=== PATIENT | male | born 1985 | race Caucasian/White ===

== ENCOUNTER 2016-07-24 20:35 | Emergency (ER) | payer MEDICAID, OTHER ==
[2016-07-24 21:04] LABS: ABSOLUTE BASOPHILS # (AUTO) 0.1 10^3/uL (0.0-0.2); ABSOLUTE EOSINOPHILS # (AUTO) 0.1 10^3/uL (0.0-0.6); ABSOLUTE LYMPHOCYTES (AUTO) 1.2 10^3/uL (0.5-4.7); ABSOLUTE MONOCYTES (AUTO) 0.5 10^3/uL (0.1-1.4); ABSOLUTE NEUT (AUTO) 5.6 10^3/uL (1.7-8.2); BASOPHILS % (AUTO) 0.8 % (0-2); EOSINOPHILS % (AUTO) 0.8 % (0-6); HEMATOCRIT 50.5 % (37.9-51.0); HEMOGLOBIN 16.9 g/dL (13.5-17.0); HGB HCT DIFFERENCE 0.2; LYMPHOCYTES % (AUTO) 15.9 % (13-45); MEAN CORPUSCULAR HEMOGLOBIN 32.2 pg (27.0-33.4); MEAN CORPUSCULAR HGB CONC 33.6 g/dL (32.0-36.0); MEAN CORPUSCULAR VOLUME 96 fl (80-97); MONOCYTES % (AUTO) 7.2 % (3-13); RED BLOOD COUNT 5.27 10^6/uL (4.35-5.55); RED CELL DISTRIBUTION WIDTH 13.2 % (11.5-14.0); SEGMENTED NEUTROPHILS % (AUTO) 75.3 % (42-78); WHITE BLOOD COUNT 7.4 10^3/uL (4.0-10.5)
[2016-07-24 21:28] LABS: ALANINE AMINOTRANSFERASE 39 U/L (21-72); ALBUMIN 4.2 g/dL (3.5-5.0); ALKALINE PHOSPHATASE 67 U/L (38-126); ANION GAP 12 (5-19); ASPARTATE AMINO TRANSFERASE 25 U/L (17-59); BLOOD UREA NITROGEN 17 mg/dL (7-20); CALCIUM 9.7 mg/dL (8.4-10.2); CARBON DIOXIDE 30 mmol/L (22-30); CHLORIDE 101 mmol/L (98-107); CREATININE RESULT 0.99 mg/dL (0.52-1.25); GLUCOSE 98 mg/dL (75-110); POTASSIUM 4.6 mmol/L (3.6-5.0); SODIUM 143.2 mmol/L (137-145); TOTAL PROTEIN 6.9 g/dL (6.3-8.2)
[2016-07-24 21:29] LABS: ALCOHOL < 10 mg/dL (NONE DETECTED)
--- NOTE | 2016-07-24 21:45 | ER Document Report ---
ED General - General Chief Complaint: Probable Seizure Stated Complaint: POSSIBLE SEIZURE Mode of Arrival: Medic Information source: Patient Notes: 30-year-old male history of pseudoseizures seizures cerebral palsy presents with seizure-like episode. EMS does note that the patient was responding during his seizure activity to them. Patient notes he has not taken his medication tonight TRAVEL OUTSIDE OF THE [place] IN LAST 30 DAYS: No - HPI Onset: Just prior to arrival Onset/Duration: Sudden Quality of pain: No pain Severity: Mild Pain Level: Denies Associated symptoms: Other Exacerbated by: Denies Relieved by: Denies Similar symptoms previously: Yes Recently seen / treated by doctor: Yes - Related Data Allergies/Adverse Reactions: azithromycin [From Zithromax Z-Jhony] Allergy (Severe, Verified 06/22/16 00:20) Shortness of Breath divalproex sodium [From Depakote] Allergy (Severe, Verified 06/22/16 00:20) Seizures doxycycline [Doxycycline] Allergy (Severe, Verified 06/22/16 00:20) Seizures erythromycin base [Erythromycin Base] Allergy (Severe, Verified 06/22/16 00:20) Shortness of Breath Influenza Virus Vaccines [Influenza Virus Vaccine] Allergy (Severe, Verified 01/29 00:20) Seizures levetiracetam [Levetiracetam] Allergy (Severe, Verified 06/22/16 00:20) Seizures lorazepam [From Ativan] Allergy (Severe, Verified 06/22/16 01:40) Shortness of Breath phenytoin sodium [From Dilantin] Allergy (Severe, Verified 06/22/16 00:20) Hallucinations phenytoin sodium extended [From Dilantin] Allergy (Severe, Verified 06/22/16 00: 20) Hallucinations latex [Latex] Adverse Reaction (Intermediate, Verified 06/22/16 00:20) Hives Past Medical History - Social History Smoking Status: Never Smoker Cigarette use (# per day): No Chew tobacco use (# tins/day): No Smoking Education Provided: No Family History: Reviewed & Not Pertinent Pulmonary Medical History: Reports: Hx Asthma Neurological Medical History: Reports: Hx Seizures Musculoskeltal Medical History: Reports Hx Muscle Spasm Psychiatric Medical History: Reports: Hx Anxiety, Hx Bipolar Disorder, Hx Depression Traumatic Medical History: Reports: Hx Fractures Past Surgical History: Reports: Hx Orthopedic Surgery - L foot - Immunizations Hx Diphtheria, Pertussis, Tetanus Vaccination: Yes Review of Systems - Review of Systems Notes: REVIEW OF SYSTEMS: CONSTITUTIONAL : Denies fever, chills, or sweats. Denies recent illness. EENT: Denies eye, ear, throat, or mouth pain or symptoms. Denies nasal or sinus congestion or discharge. Denies throat, tongue, or mouth swelling or difficulty swallowing. CARDIOVASCULAR: Denies chest pain. Denies palpitations or racing or irregular heart beat. Denies ankle edema. RESPIRATORY: Denies cough, cold, or chest congestion. Denies shortness of breath, difficulty breathing, or wheezing. GASTROINTESTINAL: Denies abdominal pain or distention. Denies nausea, vomiting , or diarrhea. Denies blood in vomitus, stools, or per rectum. Denies black, tarry stools. Denies constipation. GENITOURINARY: Denies difficulty urinating, painful urination, burning, frequency, blood in urine, or discharge. MUSCULOSKELETAL: Denies back or neck pain or stiffness. Denies joint pain or swelling. SKIN: Denies rash, lesions or sores. HEMATOLOGIC : Denies easy bruising or bleeding. LYMPHATIC: Denies swollen, enlarged glands. NEUROLOGICAL: Admits to seizure PSYCHIATRIC: Denies anxiety or stress. Denies depression, suicidal ideation, or homicidal ideation. ALL OTHER SYSTEMS REVIEWED AND NEGATIVE. Dictation was performed using [employer] voice recognition software PHYSICAL EXAMINATION: GENERAL: Well-appearing, well-nourished and in no acute distress. HEAD: Atraumatic, normocephalic. EYES: Pupils equal round and reactive to light, extraocular movements intact, sclera anicteric, conjunctiva are normal. ENT: Nares patent, oropharynx clear without exudates. Moist mucous membranes. NECK: Normal range of motion, supple without lymphadenopathy LUNGS: Breath sounds clear to auscultation bilaterally and equal. No wheezes rales or rhonchi. HEART: Regular rate and rhythm without murmurs ABDOMEN: Soft, nontender, nondistended abdomen. No guarding, no rebound. No masses appreciated. Musculoskeletal: Normal range of motion, no pitting or edema. No cyanosis. NEUROLOGICAL: Cranial nerves grossly intact. Normal speech, normal gait. Normal sensory, motor exams patient has left hand clenched , responsive to sternal rub and when I grab his hand he pulls away from me PSYCH: Normal mood, normal affect. SKIN: Warm, Dry, normal turgor, no rashes or lesions noted. Physical Exam - Vital signs Vitals: Pulse Resp BP Pulse Ox 96 20 130/53 H 98 07/24/16 20:36 07/24/16 20:36 07/24/16 20:36 07/24/16 20:36 Course - Re-evaluation Re-evalutation: 07/24/16 23:11 I have extremely low suspicion of this being an actual seizure, patient did interact with me during his seizure-like episodes. Lab work note no significant abnormality patient stable either way After performing a Medical Screening Examination, I estimate there is LOW risk for ACUTE GLAUCOMA, TEMPORAL ARTERITIS, MENINGITIS, INCRANIAL HEMORRHAGE, or ISCHEMIC STROKE thus I consider the discharge disposition reasonable. The patient and I have discussed the diagnosis and risks, and we agree with discharging home with close follow-up with the understanding that symptoms and presentations can change. We also discussed returning to the Emergency Department immediately if new or worsening symptoms occur. We have discussed the symptoms which are most concerning (e.g., changing or worsening symptoms, new numbness or weakness, vomiting, fever) that necessitate immediate return. - Vital Signs Vital signs: Temp Pulse Resp BP Pulse Ox 98.4 F 96 17 138/77 H 98 07/24/16 22:40 07/24/16 20:36 07/24/16 22:40 07/24/16 22:40 07/24/16 22:40 - Laboratory Result Diagrams: 07/24/16 20:48 07/24/16 20:48 Laboratory results interpreted by me: 07/24/16 21:38 Urine Ketones TRACE H Discharge - Discharge Clinical Impression: Seizure-like activity Condition: Stable Disposition: HOME, SELF-CARE Instructions: Seizure, Known Epileptic ([facility]) Referrals: ROC GOMEZ MD [Primary Care Provider] - Follow up tomorrow
[2016-07-24 22:07] LABS: APPEARANCE,URINE CLEAR; BILIRUBIN,URINE NEGATIVE (NEGATIVE); GLUCOSE, URINE NEGATIVE (NEGATIVE); KETONES,URINE TRACE mg/dL (NEGATIVE); LEUKOCYTE ESTERASE,URINE NEGATIVE (NEGATIVE); NITRITE,URINE NEGATIVE (NEGATIVE); PROTEIN,URINE NEGATIVE (NEGATIVE); URINE SPECIFIC GRAVITY 1.029; UROBILINOGEN,URINE NEGATIVE mg/dL (<2.0)
[2016-07-24 22:48] VITALS: BP 138/77
[2016-07-26 16:13] LABS: URINE BARBITURATES SCREEN NEGATIVE; URINE METHADONE SCREEN NEGATIVE; URINE PHENCYCLIDINE SCREEN NEGATIVE
== END 2016-07-24 22:57 | disposition home or self-care (01) ==
LOC: ER 20:35
DX: R56.9 Unspecified convulsions (principal); G80.9 Cerebral palsy, unspecified
CPT/HCPCS: 36415; 80053; 80307; 81001; 82962; 83735; 85025; 99284

== ENCOUNTER 2016-07-26 09:24 | Emergency (ER) | payer MEDICAID ==
[2016-07-26] MEDS ORDERED: DIAZEPAM INJ 10 MG/2 ML DISP.SYRIN ONE (10:02)
[2016-07-26] MEDS ORDERED: DIAZEPAM INJ 10 MG/2 ML DISP.SYRIN IV ONE ×2 (10:07→10:09)
[2016-07-26 10:24] LABS: APPEARANCE,URINE SLIGHTLY-CLOUDY; BILIRUBIN,URINE MODERATE (NEGATIVE); GLUCOSE, URINE NEGATIVE (NEGATIVE); KETONES,URINE 20 mg/dL (NEGATIVE); LEUKOCYTE ESTERASE,URINE NEGATIVE (NEGATIVE); NITRITE,URINE NEGATIVE (NEGATIVE); PROTEIN,URINE NEGATIVE (NEGATIVE); URINE SPECIFIC GRAVITY 1.031; UROBILINOGEN,URINE NEGATIVE mg/dL (<2.0)
--- NOTE | 2016-07-26 10:28 | ER Document Report ---
[id number] SEIZURE Notes: The patient is a 30-year-old male, past medical history seizure disorder, pseudoseizures, cerebral palsy, presents after a 10 minute seizure at home that resolved without any intervention. While in the emergency room, the patient had an additional generalized tonic-clonic seizure that lasted about 5 minutes. His heart rate increased to 160 and he was not responding to painful stimulation. After the seizure, patient said that he took his home Lamictal and Keppra earlier today. His girlfriend said that some of his medications have been adjusted recently. Denies head injury, numbness, tingling, blurry vision, fevers, neck stiffness, chest pain or shortness of breath. - Related Data Allergies/Adverse Reactions: azithromycin [From Zithromax Z-Jhony] Allergy (Severe, Verified 07/26/16 10:11) Shortness of Breath divalproex sodium [From Depakote] Allergy (Severe, Verified 07/26/16 10:11) Seizures doxycycline [Doxycycline] Allergy (Severe, Verified 07/26/16 10:11) Seizures erythromycin base [Erythromycin Base] Allergy (Severe, Verified 07/26/16 10:11) Shortness of Breath Influenza Virus Vaccines [Influenza Virus Vaccine] Allergy (Severe, Verified 05/02 10:11) Seizures levetiracetam [Levetiracetam] Allergy (Severe, Verified 07/26/16 10:11) Seizures lorazepam [From Ativan] Allergy (Severe, Verified 07/26/16 10:11) Shortness of Breath phenytoin sodium [From Dilantin] Allergy (Severe, Verified 07/26/16 10:11) Hallucinations phenytoin sodium extended [From Dilantin] Allergy (Severe, Verified 07/26/16 10: 11) Hallucinations latex [Latex] Adverse Reaction (Intermediate, Verified 07/26/16 10:11) Hives Past Medical History - General Information source: Patient, Friend - Social History Smoking Status: Unknown if Ever Smoked Family History: Reviewed & Not Pertinent Pulmonary Medical History: Reports: Hx Asthma Neurological Medical History: Reports: Hx Seizures Musculoskeltal Medical History: Reports Hx Muscle Spasm Psychiatric Medical History: Reports: Hx Anxiety, Hx Bipolar Disorder, Hx Depression Traumatic Medical History: Reports: Hx Fractures Past Surgical History: Reports: Hx Orthopedic Surgery - L foot - Immunizations Hx Diphtheria, Pertussis, Tetanus Vaccination: Yes Review of Systems - Review of Systems Notes: REVIEW OF SYSTEMS: CONSTITUTIONAL: -fevers, -chills EENT: -eye pain, -difficulty swallowing, -nasal congestion CARDIOVASCULAR:-chest pain, -syncope. RESPIRATORY: -cough, -SOB GASTROINTESTINAL: -abdominal pain, - nausea, -vomiting, -diarrhea GENITOURINARY: -dysuria, -hematuria MUSCULOSKELETAL: -back pain, -neck pain SKIN: -rash or skin lesions. HEMATOLOGIC: -easy bruising or bleeding. LYMPHATIC: -swollen, enlarged glands. NEUROLOGICAL: +seizure PSYCHIATRIC: -anxiety, -depression. ALL OTHER SYSTEMS REVIEWED AND NEGATIVE. Physical Exam - Vital signs Vitals: Temp Pulse Resp BP Pulse Ox 98.2 F 102 H 21 H 134/74 H 100 07/26/16 09:24 07/26/16 09:24 07/26/16 09:24 07/26/16 09:24 07/26/16 09:24 - Notes Notes: PHYSICAL EXAMINATION: GENERAL: Well-appearing, well-nourished and in no acute distress. HEAD: Atraumatic, normocephalic. EYES: Pupils equal round and reactive to light, extraocular movements intact, sclera anicteric, conjunctiva are normal. ENT: nares patent, oropharynx clear without exudates. Moist mucous membranes. NECK: Normal range of motion, supple without lymphadenopathy LUNGS: Breath sounds clear to auscultation bilaterally and equal. No wheezes rales or rhonchi. HEART: Regular rate and rhythm without murmurs ABDOMEN: Soft, nontender, normoactive bowel sounds. No guarding, no rebound. No masses appreciated. EXTREMITIES: Normal range of motion, no pitting or edema. No cyanosis. NEUROLOGICAL: Generalized tonic-clonic seizure activity. No focal neuro deficits after seizure activity resolved. PSYCH: Normal mood, normal affect. SKIN: Warm, Dry, normal turgor, no rashes or lesions noted. Course - Re-evaluation Re-evalutation: Seizure resolved quickly after Valium. Further monitored in the emergency room without additional seizures. With the elevated lactate, patient most likely had an actual seizure. Patient did not want an extra dose of his seizure medications because he took it at home already. Tachycardia resolved and patient is ambulating without difficulty. Will have him follow-up with his neurologist and primary care physician. - Vital Signs Vital signs: Temp Pulse Resp BP Pulse Ox 98.3 F 107 H 19 145/70 H 98 07/26/16 12:15 07/26/16 12:15 07/26/16 12:15 07/26/16 12:15 07/26/16 12:15 - Laboratory Result Diagrams: 07/26/16 10:27 07/26/16 09:52 Laboratory results interpreted by me: 07/26/16 07/26/16 07/26/16 09:47 09:52 09:52 Seg Neutrophils % Lymphocytes % Carbon Dioxide 32 H Lactic Acid Total Bilirubin 1.6 H Urine Ketones 20 H Urine Bilirubin MODERATE H Phenytoin < 3.0 L 07/26/16 07/26/16 10:20 10:27 Seg Neutrophils % 79.7 H Lymphocytes % 11.9 L Carbon Dioxide Lactic Acid 3.3 H Total Bilirubin Urine Ketones Urine Bilirubin Phenytoin Discharge - Discharge Clinical Impression: Seizure Condition: Good Disposition: HOME, SELF-CARE Additional Instructions: Always take your seizure medications! Seizure, Known Epileptic You have had a seizure. Seizures may "break through" in an epileptic due to stress of infection or injury, a change in blood chemistry, or drug and alcohol use. Another common cause is failure to take medication as prescribed. Your doctor has evaluated your situation for the likely cause of this seizure. It is important that you follow his advice concerning any medication changes and follow-up care. Further testing of anti-seizure medication levels in your blood may be necessary. If you have a automobile drivers's license, it's important that you DO NOT DRIVE until given permission by your physician. This seizure must be reported to the automobile drivers 's license bureau. Call the doctor or return if seizures recur, or if new or unusual symptoms arise -- such as severe headache, confusion, excessive sleepiness, local weakness or numbness, neck stiffness, or fever. Referrals: ROC GOMEZ MD [Primary Care Provider] - Follow up as needed MICHAEL CARTER MD [ACTIVE STAFF] - Follow up as needed
[2016-07-26 10:41] LABS: ABSOLUTE LYMPHOCYTES (AUTO) 0.7 10^3/uL (0.5-4.7); ABSOLUTE MONOCYTES (AUTO) 0.5 10^3/uL (0.1-1.4); ABSOLUTE NEUT (AUTO) 4.9 10^3/uL (1.7-8.2); BASOPHILS % (AUTO) 0.4 % (0-2); EOSINOPHILS % (AUTO) 0.6 % (0-6); HEMATOCRIT 49.3 % (37.9-51.0); HEMOGLOBIN 16.4 g/dL (13.5-17.0); HGB HCT DIFFERENCE -0.1; LYMPHOCYTES % (AUTO) 11.9 % (13-45); MEAN CORPUSCULAR HEMOGLOBIN 32.1 pg (27.0-33.4); MEAN CORPUSCULAR HGB CONC 33.4 g/dL (32.0-36.0); MEAN CORPUSCULAR VOLUME 96 fl (80-97); MONOCYTES % (AUTO) 7.4 % (3-13); RED BLOOD COUNT 5.12 10^6/uL (4.35-5.55); RED CELL DISTRIBUTION WIDTH 13.3 % (11.5-14.0); SEGMENTED NEUTROPHILS % (AUTO) 79.7 % (42-78); WHITE BLOOD COUNT 6.2 10^3/uL (4.0-10.5)
[2016-07-26 10:54] LABS: ALANINE AMINOTRANSFERASE 35 U/L (21-72); ALKALINE PHOSPHATASE 74 U/L (38-126); ANION GAP 12 (5-19); ASPARTATE AMINO TRANSFERASE 26 U/L (17-59); BILIRUBIN,TOTAL 1.6 mg/dL (0.2-1.3); BLOOD UREA NITROGEN 15 mg/dL (7-20); CARBON DIOXIDE 32 mmol/L (22-30); CHLORIDE 99 mmol/L (98-107); CREATININE RESULT 1.02 mg/dL (0.52-1.25); GLUCOSE 92 mg/dL (75-110); MAGNESIUM 2.1 mg/dL (1.6-2.3); POTASSIUM 4.4 mmol/L (3.6-5.0); SODIUM 142.6 mmol/L (137-145); TOTAL PROTEIN 7.5 g/dL (6.3-8.2)
[2016-07-26 10:56] LABS: ALCOHOL < 10 mg/dL (NONE DETECTED)
[2016-07-26] MEDS ORDERED: LEVETIRACETAM 500 MG TABLET PO ONE (11:42)
[2016-07-26] MEDS ORDERED: LAMOTRIGINE 100 MG TABLET PO ONE (11:42)
[2016-07-26 12:17] VITALS: BP 145/70
--- NOTE | 2016-07-26 17:00 | EKG REPORT ---
SEVERITY:- ABNORMAL ECG - SINUS TACHYCARDIA RIGHT ATRIAL ABNORMALITY NONSPECIFIC INTRAVENTRICULAR CONDUCTION DELAY PROBABLE LEFT VENTRICULAR HYPERTROPHY : Confirmed by: Zulema De Jesus MD 26-Jul-2016 16:58:48
[2016-07-26 17:35] LABS: URINE BARBITURATES SCREEN NEGATIVE; URINE METHADONE SCREEN NEGATIVE; URINE PHENCYCLIDINE SCREEN NEGATIVE
== END 2016-07-26 12:15 | disposition home or self-care (01) ==
LOC: ER 09:24
DX: G40.909 Epilepsy, unspecified, not intractable, without status epilepticus (principal); G80.9 Cerebral palsy, unspecified; J45.909 Unspecified asthma, uncomplicated; Z79.899 Other long term (current) drug therapy; Z88.1 Allergy status to other antibiotic agents; Z88.8 Allergy status to other drugs, medicaments and biological substances; Z88.7 Allergy status to serum and vaccine
CPT/HCPCS: 93005; 99284; 96374; 36415; 82962; 80307 ×2; 83735; 80185; 85025; 80053; 81001; 83605; 93010; J3360

== ENCOUNTER 2016-08-06 22:42 | Emergency (ER) | payer MEDICAID ==
[2016-08-06] MEDS ORDERED: MIDAZOLAM 2 MG/2 ML INJ IV ONE (22:50)
[2016-08-06] MEDS ORDERED: MIDAZOLAM 2 MG/2 ML INJ ONE (22:50)
[2016-08-06] MEDS ORDERED: AMMONIA INHALANTS 10 AMPUL/BOX IH ONE (22:57)
[2016-08-06 22:59] LABS: ABSOLUTE EOSINOPHILS # (AUTO) 0.2 10^3/uL (0.0-0.6); ABSOLUTE LYMPHOCYTES (AUTO) 1.9 10^3/uL (0.5-4.7); ABSOLUTE MONOCYTES (AUTO) 0.8 10^3/uL (0.1-1.4); ABSOLUTE NEUT (AUTO) 6.7 10^3/uL (1.7-8.2); BASOPHILS % (AUTO) 0.3 % (0-2); EOSINOPHILS % (AUTO) 1.9 % (0-6); HEMATOCRIT 53.3 % (37.9-51.0); HEMOGLOBIN 17.1 g/dL (13.5-17.0); LYMPHOCYTES % (AUTO) 19.9 % (13-45); MEAN CORPUSCULAR HEMOGLOBIN 31.7 pg (27.0-33.4); MEAN CORPUSCULAR VOLUME 99 fl (80-97); MONOCYTES % (AUTO) 8.2 % (3-13); RED BLOOD COUNT 5.38 10^6/uL (4.35-5.55); RED CELL DISTRIBUTION WIDTH 13.2 % (11.5-14.0); SEGMENTED NEUTROPHILS % (AUTO) 69.7 % (42-78); WHITE BLOOD COUNT 9.6 10^3/uL (4.0-10.5)
[2016-08-06] MEDS ORDERED: DIPHENHYDRAMINE HCL 50 MG/ML VIAL IV ONE (23:00)
[2016-08-06] MEDS ORDERED: METOCLOPRAMIDE HCL INJ/PF 10 MG/2 ML SDV IV ONE (23:00)
[2016-08-06 23:24] LABS: BLOOD UREA NITROGEN 10 mg/dL (7-20); CALCIUM 10.3 mg/dL (8.4-10.2); CREATININE RESULT 1.02 mg/dL (0.52-1.25); GLUCOSE 89 mg/dL (75-110); MAGNESIUM 2.5 mg/dL (1.6-2.3)
[2016-08-06 23:33] LABS: CARBON DIOXIDE 26 mmol/L (22-30); CHLORIDE 95 mmol/L (98-107); POTASSIUM 4.1 mmol/L (3.6-5.0); SODIUM 146.3 mmol/L (137-145)
[2016-08-06 23:41] LABS: ANION GAP 25 (5-19)
--- NOTE | 2016-08-06 23:58 | ER Document Report ---
ED General - General Chief Complaint: Seizure Stated Complaint: POSSIBLE SEIZURES Notes: Patient is a 30-year-old male presents with complaint of seizure activity. He does have a history of both greater seizures and pseudoseizures. He is followed by neurologist in [place]. He is currently on Keppra. He has been taking his medications. His girlfriend is at bedside. She says that today he became very stressed 1 a car due to financial issues. Since and has been having [id number] seizures. He comes in actively seizing. No recent fevers or infections. No recent traumas or injuries. No recent changes in his medications. No other complaints at this time. TRAVEL OUTSIDE OF THE [place] IN LAST 30 DAYS: No - Related Data Allergies/Adverse Reactions: azithromycin [From Zithromax Z-Jhony] Allergy (Severe, Verified 07/26/16 10:11) Shortness of Breath divalproex sodium [From Depakote] Allergy (Severe, Verified 07/26/16 10:11) Seizures doxycycline [Doxycycline] Allergy (Severe, Verified 07/26/16 10:11) Seizures erythromycin base [Erythromycin Base] Allergy (Severe, Verified 07/26/16 10:11) Shortness of Breath Influenza Virus Vaccines [Influenza Virus Vaccine] Allergy (Severe, Verified 05/02 10:11) Seizures levetiracetam [Levetiracetam] Allergy (Severe, Verified 07/26/16 10:11) Seizures lorazepam [From Ativan] Allergy (Severe, Verified 07/26/16 10:11) Shortness of Breath phenytoin sodium [From Dilantin] Allergy (Severe, Verified 07/26/16 10:11) Hallucinations phenytoin sodium extended [From Dilantin] Allergy (Severe, Verified 07/26/16 10: 11) Hallucinations latex [Latex] Adverse Reaction (Intermediate, Verified 07/26/16 10:11) Hives Past Medical History - Social History Smoking Status: Unknown if Ever Smoked Frequency of alcohol use: None Drug Abuse: None Family History: Reviewed & Not Pertinent Patient has suicidal ideation: No Patient has homicidal ideation: No Pulmonary Medical History: Reports: Hx Asthma Neurological Medical History: Reports: Hx Seizures Renal/ Medical History: Denies: Hx Peritoneal Dialysis Musculoskeltal Medical History: Reports Hx Muscle Spasm Psychiatric Medical History: Reports: Hx Anxiety, Hx Bipolar Disorder, Hx Depression Traumatic Medical History: Reports: Hx Fractures Past Surgical History: Reports: Hx Orthopedic Surgery - L foot - Immunizations Hx Diphtheria, Pertussis, Tetanus Vaccination: Yes Review of Systems - Review of Systems Notes: My Normal Review Basic REVIEW OF SYSTEMS: CONSTITUTIONAL : Denies fever, chills, or sweats. Denies recent illness. EENT: Denies eye, ear, throat, or mouth pain or symptoms. Denies nasal or sinus congestion. CARDIOVASCULAR: Denies chest pain. RESPIRATORY: Denies cough, cold, or chest congestion. Denies shortness of breath, difficulty breathing, or wheezing. GASTROINTESTINAL: Denies abdominal pain. Denies nausea, vomiting, or diarrhea. Denies constipation. Last BM: MUSCULOSKELETAL: Denies neck or back pain or joint pain or swelling. SKIN: Denies rash or skin lesions. HEMATOLOGIC : Denies easy bruising or bleeding. LYMPHATIC: Denies swollen, enlarged glands. NEUROLOGICAL: Recurrent seizures PSYCHIATRIC: Some stress. ALL OTHER SYSTEMS REVIEWED AND NEGATIVE. Physical Exam - Vital signs Vitals: Resp Pulse Ox 18 93 08/06/16 22:54 08/06/16 22:54 - Notes Notes: General Appearance: Well nourished, alert, cooperative, no acute distress, no obvious discomfort. Vitals: reviewed, See vital signs table. Head: no swelling or tenderness to the head Eyes: PERRL, EOMI, Conjuctiva clear Mouth: No decreasd moisture Neck: Supple, no neck tenderness, No thyromegaly Lungs: No wheezing, No rales, No rhonci, No accessory muscle use, good air exchange bilaterally. Heart: Tachycardic rate, Regular rythm, No murmur, no rub Abdomen: Normal BS, soft, No rigidity, No abdominal tenderness, No guarding, no rebound, no abdominal masses, no organomegaly Extremities: strength 5/5 in all extremities, good pulses in all extremities, no swelling or tenderness in the extremities, no edema. Skin: warm, dry, appropriate color, no rash Neuro: Actively having tremors of the upper extremities and facial twitching. Course - Vital Signs Vital signs: Temp Pulse Resp BP Pulse Ox 97.9 F 25 H 123/71 98 08/07/16 01:57 08/07/16 01:54 08/07/16 01:54 08/07/16 01:53 - Laboratory Result Diagrams: 08/06/16 22:47 08/06/16 22:47 Laboratory results interpreted by me: 08/06/16 08/06/16 22:47 22:47 Hgb 17.1 H Hct 53.3 H MCV 99 H Sodium 146.3 H Chloride 95 L Anion Gap 25 H Calcium 10.3 H Magnesium 2.5 H - Transfer of Care Notes: 08/07/16 01:36 Patient is awake and alert. He feels much improved. He says he feels good to go home. 08/07/16 06:01 Initial evaluation of the patient he presented with seizure-like activity. During the seizures he had full control his movements is involuntary. Was able lift his arm above his head is able to continue control it as a dropped onto his chest. Place an ammonia capsule from his nose he started to cough and purposely move his head away from pneumonia as he continued to have some tremors and convulsions. He never had any tongue biting. No loss of urinary continence. Seizures seems very consistent with his history of pseudoseizures. Patient was given small dose of Versed which helped symptoms. Had no further activity. This seems that these were caused by him having stress reaction why the car when talking about financial issues with his significant other. At this time for the patient is safe to be discharged home. Encourage in follow closely with her neurologist. Patient and his significant other agree with plan and he will be discharged home. Dictation of this chart was performed using voice recognition software; therefore, there may be some unintended grammatical errors. Discharge - Discharge Clinical Impression: Pseudoseizure Condition: Good Disposition: HOME, SELF-CARE Additional Instructions: Please call your neurologist for close follow-up appointment. Please return to ER immediately if you have intractable seizures, fevers, or feel unwell. Referrals: ROC GOMEZ MD [Primary Care Provider] - Follow up as needed
[2016-08-07 01:57] VITALS: BP 123/71
== END 2016-08-07 01:57 | disposition home or self-care (01) ==
LOC: ER 22:42
DX: R56.9 Unspecified convulsions (principal)
CPT/HCPCS: 99284; 96374; 96375; 36415; 83735; 85025; 80048; J3490; J2250; J1200; J2765

== ENCOUNTER 2016-09-04 15:40 | Emergency (ER) | payer MEDICAID ==
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
[2016-09-04 17:41] LABS: ABSOLUTE EOSINOPHILS # (AUTO) 0.1 10^3/uL (0.0-0.6); ABSOLUTE LYMPHOCYTES (AUTO) 0.9 10^3/uL (0.5-4.7); ABSOLUTE MONOCYTES (AUTO) 0.7 10^3/uL (0.1-1.4); ABSOLUTE NEUT (AUTO) 6.2 10^3/uL (1.7-8.2); BASOPHILS % (AUTO) 0.2 % (0-2); EOSINOPHILS % (AUTO) 1.1 % (0-6); HEMATOCRIT 48.7 % (37.9-51.0); HEMOGLOBIN 16.3 g/dL (13.5-17.0); HGB HCT DIFFERENCE 0.2; LYMPHOCYTES % (AUTO) 11.2 % (13-45); MEAN CORPUSCULAR HGB CONC 33.4 g/dL (32.0-36.0); MEAN CORPUSCULAR VOLUME 96 fl (80-97); MONOCYTES % (AUTO) 8.8 % (3-13); RED BLOOD COUNT 5.08 10^6/uL (4.35-5.55); RED CELL DISTRIBUTION WIDTH 12.7 % (11.5-14.0); SEGMENTED NEUTROPHILS % (AUTO) 78.7 % (42-78); WHITE BLOOD COUNT 7.9 10^3/uL (4.0-10.5)
[2016-09-04 17:42] LABS: APPEARANCE,URINE CLEAR; BILIRUBIN,URINE NEGATIVE (NEGATIVE); GLUCOSE, URINE NEGATIVE (NEGATIVE); KETONES,URINE NEGATIVE (NEGATIVE); LEUKOCYTE ESTERASE,URINE NEGATIVE (NEGATIVE); NITRITE,URINE NEGATIVE (NEGATIVE); PROTEIN,URINE NEGATIVE (NEGATIVE); UROBILINOGEN,URINE NEGATIVE mg/dL (<2.0)
[2016-09-04 17:56] LABS: ALANINE AMINOTRANSFERASE 33 U/L (21-72); ALBUMIN 4.8 g/dL (3.5-5.0); ALKALINE PHOSPHATASE 80 U/L (38-126); ANION GAP 11 (5-19); ASPARTATE AMINO TRANSFERASE 19 U/L (17-59); BILIRUBIN,TOTAL 0.6 mg/dL (0.2-1.3); BLOOD UREA NITROGEN 10 mg/dL (7-20); CARBON DIOXIDE 30 mmol/L (22-30); CHLORIDE 102 mmol/L (98-107); CREATININE RESULT 0.99 mg/dL (0.52-1.25); GLUCOSE 85 mg/dL (75-110); POTASSIUM 4.1 mmol/L (3.6-5.0); SODIUM 143.2 mmol/L (137-145); TOTAL PROTEIN 7.2 g/dL (6.3-8.2)
[2016-09-04 17:57] LABS: ALCOHOL < 10 mg/dL (NONE DETECTED)
[2016-09-04 19:12] LABS: URINE BARBITURATES SCREEN NEGATIVE; URINE METHADONE SCREEN NEGATIVE; URINE OPIATES LOW NEGATIVE; URINE PHENCYCLIDINE SCREEN NEGATIVE
[2016-09-04] MEDS ORDERED: DIAZEPAM 5 MG TABLET PO ONE (20:03)
--- NOTE | 2016-09-04 20:07 | ER Document Report ---
ED General - General Chief Complaint: Suicidal Ideation Stated Complaint: SUICIDAL IDEATION/PSYCH EVAL Mode of Arrival: Ambulatory Notes: Patient is a 31-year-old male well-known to this emergency department, frequent presents of pseudoseizures and agitation who presents with suicidal ideation. Patient states that he was holding a knife to his throat today and that his therapy dog stopped him from killing himself. He is unable specify how the dog actually stopped him from killing himself. States he continues to be suicidal at this time and would plan to kill himself using a knife. He has tried to harm himself in the past. He denies any homicidal ideation, hallucinations. Denies any drug or alcohol use. He is not currently taking any psychiatric medications. States "family stuff" has caused him to have these symptoms. Nothing improves his suicidality. He has not spoken to his primary care doctor or psychiatrist regarding today's concerns TRAVEL OUTSIDE OF THE [place] IN LAST 30 DAYS: No - Related Data Allergies/Adverse Reactions: azithromycin [From Zithromax Z-Jhony] Allergy (Severe, Verified 09/04/16 18:24) Shortness of Breath divalproex sodium [From Depakote] Allergy (Severe, Verified 09/04/16 18:24) Seizures doxycycline [Doxycycline] Allergy (Severe, Verified 09/04/16 18:24) Seizures erythromycin base [Erythromycin Base] Allergy (Severe, Verified 09/04/16 18:24) Shortness of Breath Influenza Virus Vaccines [Influenza Virus Vaccine] Allergy (Severe, Verified 18:24) Seizures levetiracetam [Levetiracetam] Allergy (Severe, Verified 09/04/16 18:24) Seizures lorazepam [From Ativan] Allergy (Severe, Verified 09/04/16 18:24) Shortness of Breath phenytoin sodium [From Dilantin] Allergy (Severe, Verified 09/04/16 18:24) Hallucinations phenytoin sodium extended [From Dilantin] Allergy (Severe, Verified 09/04/16 18: 24) Hallucinations diazepam Allergy (Verified 09/04/16 18:24) meloxicam Allergy (Verified 09/04/16 16:09) zonisamide [From Zonegran] Allergy (Verified 09/04/16 16:09) latex [Latex] Adverse Reaction (Intermediate, Verified 09/04/16 18:24) Hives Past Medical History - General Information source: Patient - Social History Smoking Status: Never Smoker Chew tobacco use (# tins/day): No Frequency of alcohol use: None Drug Abuse: None Lives with: Family Family History: Reviewed & Not Pertinent Patient has suicidal ideation: Yes Patient has homicidal ideation: No Pulmonary Medical History: Reports: Hx Asthma Neurological Medical History: Reports: Hx Seizures Renal/ Medical History: Denies: Hx Peritoneal Dialysis Musculoskeltal Medical History: Reports Hx Muscle Spasm Psychiatric Medical History: Reports: Hx Anxiety, Hx Bipolar Disorder, Hx Depression Traumatic Medical History: Reports: Hx Fractures Past Surgical History: Reports: Hx Abdominal Surgery - umbilical, Hx Orthopedic Surgery - L foot - Immunizations Hx Diphtheria, Pertussis, Tetanus Vaccination: Yes Review of Systems - Review of Systems Notes: Constitutional: Negative for fever. HENT: Negative for sore throat. Eyes: Negative for visual changes. Cardiovascular: Negative for chest pain. Respiratory: Negative for shortness of breath. Gastrointestinal: Negative for abdominal pain, vomiting or diarrhea. Genitourinary: Negative for dysuria. Musculoskeletal: Negative for back pain. Skin: Negative for rash. Neurological: Negative for headaches, weakness or numbness. 10 point ROS negative except as marked above and in HPI. Physical Exam - Vital signs Vitals: Temp Pulse Resp BP Pulse Ox 98.1 F 118 H 16 135/73 H 97 09/04/16 15:50 09/04/16 15:50 09/04/16 15:50 09/04/16 15:50 09/04/16 15:50 Interpretation: Tachycardic Notes: PHYSICAL EXAMINATION: GENERAL: Well-appearing, well-nourished and in no acute distress. HEAD: Atraumatic, normocephalic. EYES: Pupils equal round and reactive to light, extraocular movements intact, sclera anicteric, conjunctiva are normal. ENT: nares patent, oropharynx clear without exudates. Moist mucous membranes. NECK: Normal range of motion, supple without lymphadenopathy LUNGS: Breath sounds clear to auscultation bilaterally and equal. No wheezes rales or rhonchi. HEART: Regular rate and rhythm without murmurs ABDOMEN: Soft, nontender, normoactive bowel sounds. No guarding, no rebound. No masses appreciated. EXTREMITIES: Normal range of motion, no pitting or edema. No cyanosis. NEUROLOGICAL: No focal neurological deficits. Moves all extremities spontaneously and on command. PSYCH: Poor eye contact, admitting to suicidal ideation SKIN: Warm, Dry, normal turgor, no rashes or lesions noted. Course - Re-evaluation Re-evalutation: 09/04/16 20:05 Patient presents with acute suicidal ideation with threat to kill himself using a knife. He continues to be suicidal at this time. Given his ongoing suicidality with plan, I do not believe it is safe to discharge him at this time. He has been placed on an involuntary commitment. A medical screening exam including medical screening laboratories are unremarkable. He denies any acute medical complaint. He is medically cleared for evaluation by psychiatry in the morning. He will be given a low dose of Valium here in the emergency department which family clarifies he does not have an allergy nor an adverse reaction to to prevent escalation as patient does have a known history both by medical records, having personally cared from the patient in the past, and is by his own admission of becoming extremely agitated and violent. 09/05/16 02:44 Patient did attempt to slash his wrists with a broken end of a plastic spoon. He did receive plastic spoon to eat fruit cup and apparently became agitated for unclear reasons began stabbing himself with this. He only inflicted very superficial abrasions of the forearm. His tetanus is already up-to-date. He was placed in 4 point restraints for a period of time for his own safety and given 10 mg of intramuscular Valium with resolution of his agitation. Restraints have been released at this point. - Vital Signs Vital signs: Temp Pulse Resp BP Pulse Ox 98.1 F 118 H 16 135/73 H 97 09/04/16 15:50 09/04/16 15:50 09/04/16 15:50 09/04/16 15:50 09/04/16 15:50 - Laboratory Result Diagrams: 09/04/16 17:15 09/04/16 17:15 Laboratory results interpreted by me: 09/04/16 09/04/16 09/04/16 16:45 17:15 17:15 Seg Neutrophils % 78.7 H Lymphocytes % 11.2 L Urine Blood SMALL H Salicylates < 1.0 L Acetaminophen < 10 L - EKG Interpretation by Me Additional EKG results interpreted by me: 09/04/16 20:07 Sinus tachycardia. Rate 107. No ST elevations or depressions. QTC is 417. Discharge - Discharge Clinical Impression: Suicidal ideation Condition: Fair Disposition: PSYCH HOSP/UNIT
--- NOTE | 2016-09-04 22:00 | EKG REPORT ---
SEVERITY:- ABNORMAL ECG - SINUS TACHYCARDIA RIGHT ATRIAL ABNORMALITY INFERIOR Q WAVES, PROBABLY NORMAL VARIATION : Confirmed by: Katherine Amador 04-Sep-2016 21:59:24
[2016-09-05] MEDS ORDERED: DIAZEPAM INJ 10 MG/2 ML DISP.SYRIN ONE (00:25)
--- NOTE | 2016-09-05 06:17 | PSYCHOLOGICAL NOTE ---
Psych Note - Psych Note Psych Note: Patient is a 31 year old male who presents via his friend due to alleged suicide attempt by holding aknife to his throat. Patient is also accompanied by his service dog, which is present to detect seizures, due to a reported epilepsy history and CP. Patient this evening states he has been distraught over discord with his family. He states yesterday he inform them he no longer wanted them to be his power of divorce attorney and he was told to leave their property. Patient states this morning he was told he was not welcomed back. He states that was his final straw. Patient states he moved down to [place] from [facility] and is currently living with roommates. He states he feels he has no purpose and no role in the world. Patient reports he reached out to his friend, who is bedside, and asked if they would give him arrived to scientology. Patient states while they sat down and met with the behavioral therapist and he fully disclose the extent of his depression, and suicidal ideations. Patient reports he wants to . Patient states he was seen here in this department and discharged with plan to reside with friends for support and follow-up. Patient states while staying with the friend he attempted to hang himself with a pillow case and was brought to the [facility] for evaluation. Patient states he [facility] placed him under an involuntary commitment and he was transferred to [facility] for psychiatric commitment. Patient states he was discharged prior to the completion of his treatment with the plan to follow up with [facility] where he receives weekly outpatient therapy and medication management. Patient's friend, states he has observed the decline of the patient over the past few weeks. He reports concerns for his safety and would like to see him sent to an inpatient psychiatric hospital. Friend reports the patient's ability to cope has slowly declined as well as his familial stressors have increased. Friend reports overall concerned given patient's suicide attempts in the past as well as this morning's episode. Patient's [facility] Door Furring Installer Dena Parikh [phone] reports: No answer Patient is alert and oriented. Mood is euthymic with normal affect. Patient endorses suicidal ideations and states he wants to by suicide. Patient denies homicidal ideations, intent, plan, means. Patient denies A/VH; delusions not noted thought processes were organized. Conversational speech was WNL for this patient. Intellectual abilities were estimated within average range. Attention and focus were fair. Insight, judgment, impulse control were fair. 311 (F32.9) Unspecified Depressive Disorder At this time the evaluation cannot be completed due to missing critical medical information, to include lab work and urinalysis but toxicology. Patient will be reevaluated at a later time for further disposition and recommendations. I have consulted with Dr. Gaytan in regards to the care and management of this patient.
--- NOTE | 2016-09-05 10:33 | ER Document Report ---
[id number] suicidal and attempted to kill himself by trying to cut his throat with a broken plastic spoon, but was stopped by his service dog nudging his leg. Patient says he doesn't feel suicidal now. Patient also has a history of seizures or pseudoseizures for which he sees a Dr. Escobedo at [place]. Patient says he's on medications although it's recorded in his chart he is not taking his medicines. Vital signs are normal. Lab studies have all been normal. Patient appears to be medically stable for transfer or discharge. Inga Roque M.D. 09/05/16 13:55 Patient reportedly having seizures. I went to his room and he is having some combative movements and swinging his extremities and not responsive to questions or commands. This lasted for several minutes. I had security stop holding the patient down and he did not thrash about or fall out of the bed. I don't think he is having real seizures. I also believe his behavior may be manipulative for secondary gain or for medications or some other benefit. We'll give the patient 2 mg of Ativan IM, even though his chart says he is allergic, his symptoms are reportedly short of breath when he has Ativan. I don 't see any contraindication to him receiving it at this time. Inga Roque M.D. 09/05/16 21:16 Patient awakened from a long, hard sleep, probably related to receiving his medications (Lamictal, Keppra, and gabapentin) plus Valium 10 mg IM. Upon awakening, patient became very aggressive, hostile, uncooperative, and belligerent. He was hitting the wall with his fist and his head. Patient was restrained by security. Patient's evening dose of his medications was recommended an hour early. If he won't take them orally, I've ordered Geodon 20 mg IM once. Inga Roque M.D. 09/06/16 20:33
[2016-09-05] MEDS ORDERED: GABAPENTIN 300 MG CAPSULE PO SCH (10:45)
[2016-09-05] MEDS ORDERED: LEVETIRACETAM 500 MG TABLET PO SCH (10:45)
[2016-09-05] MEDS ORDERED: LAMOTRIGINE 100 MG TABLET PO ONE (12:00)
--- NOTE | 2016-09-05 13:42 | PSYCHOLOGICAL NOTE ---
Psych Note - Psych Note Psych Note: Attempted to reconsult patient; however, he was experiencing seizure like activity. Will attempt at a later time.
[2016-09-05] MEDS ORDERED: LORAZEPAM INJ 2 MG/1 ML VIAL IM ONE (13:54)
[2016-09-05] MEDS ORDERED: DIAZEPAM INJ 10 MG/2 ML DISP.SYRIN IM ONE (14:01)
[2016-09-05] MEDS: GABAPENTIN 300 MG CAPSULE PO SCH (21:03)
[2016-09-05] MEDS: LEVETIRACETAM 500 MG TABLET PO SCH (21:03)
[2016-09-05] MEDS: LAMOTRIGINE 100 MG TABLET PO SCH (21:03)
[2016-09-05] MEDS ORDERED: ZIPRASIDONE MESYLATE INJ/PF 20 MG SDV IM PRN (21:17)
[2016-09-05] MEDS ORDERED: ACETAMINOPHEN 325 MG TABLET ONE (22:15)
[2016-09-05] MEDS ORDERED: ACETAMINOPHEN 325 MG TABLET PO ONE (22:16)
--- NOTE | 2016-09-06 09:08 | ER Document Report ---
Doctor's Note Notes: 09/06/16 13:03 Patient stable at this time, will be discharged home with care plan provided to him by her mental health team
[2016-09-06] MEDS: LAMOTRIGINE 100 MG TABLET PO SCH (10:22)
[2016-09-06] MEDS: LEVETIRACETAM 500 MG TABLET PO SCH (10:23)
[2016-09-06] MEDS: GABAPENTIN 300 MG CAPSULE PO SCH (10:23)
[2016-09-06 14:09] VITALS: BP 133/65
== END 2016-09-06 13:50 ==
LOC: ER 15:40
DX: R45.851 Suicidal ideations (principal)
CPT/HCPCS: 93005; 99285; 96372; 36415; 80307 ×4; 85025; 80053; 81001; 93010; J3490 ×4; J3486; J3360

== ENCOUNTER 2016-09-22 20:22 | Emergency (ER) | payer MEDICAID ==
--- NOTE | 2016-09-22 20:42 | ER Document Report ---
ED Medical Screen (RME) - General Stated Complaint: SUICIDAL IDEATION Notes: suicidal ideations, admits to intent and plan to hang himself. was voluntarily at [facility] to be evaluated for suicidal ideations. States he left voluntarily to come home to deal with social issues. states that he is suicidal, denies homicidal ideations. PMH: cerebral palsy, secondary polycythemia, epilepsy, asthma I have greeted and performed a rapid initial assessment of this patient. A comprehensive ED assessment and evaluation of the patient, analysis of test results and completion of the medical decision making process will be conducted by additional ED providers. TRAVEL OUTSIDE OF THE [place] IN LAST 30 DAYS: No - Related Data Allergies/Adverse Reactions: azithromycin [From Zithromax Z-Jhony] Allergy (Severe, Verified 09/04/16 18:24) Shortness of Breath divalproex sodium [From Depakote] Allergy (Severe, Verified 09/04/16 18:24) Seizures doxycycline [Doxycycline] Allergy (Severe, Verified 09/04/16 18:24) Seizures erythromycin base [Erythromycin Base] Allergy (Severe, Verified 09/04/16 18:24) Shortness of Breath Influenza Virus Vaccines [Influenza Virus Vaccine] Allergy (Severe, Verified 18:24) Seizures lorazepam [From Ativan] Allergy (Severe, Verified 09/04/16 18:24) Shortness of Breath phenytoin sodium [From Dilantin] Allergy (Severe, Verified 09/04/16 18:24) Hallucinations phenytoin sodium extended [From Dilantin] Allergy (Severe, Verified 09/04/16 18: 24) Hallucinations diazepam Allergy (Verified 09/04/16 18:24) meloxicam Allergy (Verified 09/04/16 16:09) zonisamide [From Zonegran] Allergy (Verified 09/04/16 16:09) latex [Latex] Adverse Reaction (Intermediate, Verified 09/04/16 18:24) Hives Past Medical History Pulmonary Medical History: Reports: Hx Asthma Neurological Medical History: Reports: Hx Seizures Renal/ Medical History: Denies: Hx Peritoneal Dialysis Musculoskeltal Medical History: Reports Hx Muscle Spasm Psychiatric Medical History: Reports: Hx Anxiety, Hx Bipolar Disorder, Hx Depression Traumatic Medical History: Reports: Hx Fractures Past Surgical History: Reports: Hx Abdominal Surgery - umbilical, Hx Orthopedic Surgery - L foot - Immunizations Hx Diphtheria, Pertussis, Tetanus Vaccination: Yes
[2016-09-22 21:13] LABS: ABSOLUTE LYMPHOCYTES (AUTO) 0.9 10^3/uL (0.5-4.7); ABSOLUTE MONOCYTES (AUTO) 0.6 10^3/uL (0.1-1.4); ABSOLUTE NEUT (AUTO) 10.3 10^3/uL (1.7-8.2); BASOPHILS % (AUTO) 0.2 % (0-2); EOSINOPHILS % (AUTO) 0.2 % (0-6); HEMATOCRIT 48.6 % (37.9-51.0); HEMOGLOBIN 16.3 g/dL (13.5-17.0); HGB HCT DIFFERENCE 0.3; LYMPHOCYTES % (AUTO) 7.5 % (13-45); MEAN CORPUSCULAR HEMOGLOBIN 31.9 pg (27.0-33.4); MEAN CORPUSCULAR HGB CONC 33.5 g/dL (32.0-36.0); MEAN CORPUSCULAR VOLUME 95 fl (80-97); MONOCYTES % (AUTO) 5.4 % (3-13); RED CELL DISTRIBUTION WIDTH 13.1 % (11.5-14.0); SEGMENTED NEUTROPHILS % (AUTO) 86.7 % (42-78); WHITE BLOOD COUNT 11.9 10^3/uL (4.0-10.5)
[2016-09-22 21:16] LABS: APPEARANCE,URINE CLEAR; BILIRUBIN,URINE NEGATIVE (NEGATIVE); GLUCOSE, URINE NEGATIVE (NEGATIVE); KETONES,URINE NEGATIVE (NEGATIVE); LEUKOCYTE ESTERASE,URINE NEGATIVE (NEGATIVE); NITRITE,URINE NEGATIVE (NEGATIVE); PROTEIN,URINE NEGATIVE (NEGATIVE); URINE SPECIFIC GRAVITY 1.002; UROBILINOGEN,URINE NEGATIVE mg/dL (<2.0)
[2016-09-22 21:38] LABS: URINE BARBITURATES SCREEN NEGATIVE; URINE METHADONE SCREEN NEGATIVE; URINE OPIATES LOW NEGATIVE; URINE PHENCYCLIDINE SCREEN NEGATIVE
[2016-09-22 21:45] LABS: ALANINE AMINOTRANSFERASE 48 U/L (21-72); ALBUMIN 5.1 g/dL (3.5-5.0); ALKALINE PHOSPHATASE 78 U/L (38-126); ANION GAP 14 (5-19); ASPARTATE AMINO TRANSFERASE 39 U/L (17-59); BILIRUBIN,TOTAL 0.7 mg/dL (0.2-1.3); BLOOD UREA NITROGEN 11 mg/dL (7-20); CALCIUM 10.5 mg/dL (8.4-10.2); CARBON DIOXIDE 31 mmol/L (22-30); CHLORIDE 97 mmol/L (98-107); CREATININE RESULT 0.83 mg/dL (0.52-1.25); GLUCOSE 101 mg/dL (75-110); POTASSIUM 4.7 mmol/L (3.6-5.0); SODIUM 142.3 mmol/L (137-145); TOTAL PROTEIN 7.9 g/dL (6.3-8.2)
[2016-09-22 21:46] LABS: ALCOHOL < 10 mg/dL (NONE DETECTED)
[2016-09-22] MEDS ORDERED: GABAPENTIN 300 MG CAPSULE PO ONE (22:14)
[2016-09-22] MEDS ORDERED: LAMOTRIGINE 100 MG TABLET PO ONE (22:14)
[2016-09-22] MEDS ORDERED: OLANZAPINE 5 MG TABLET PO ONE (22:14)
[2016-09-22] MEDS ORDERED: LEVETIRACETAM 500 MG TABLET PO ONE (22:14)
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
[2016-09-22 22:54] VITALS: BP 165/80
--- NOTE | 2016-09-23 19:38 | EKG REPORT ---
SEVERITY:- ABNORMAL ECG - SINUS RHYTHM RAA, CONSIDER BIATRIAL ABNORMALITIES ANTERIOR ST ELEVATION, PROBABLY DUE TO LVH : Confirmed by: Katherine Amador 23-Sep-2016 19:38:01
== END 2016-09-22 22:24 | disposition home or self-care (01) ==
LOC: ER 20:22
DX: F32.9 Major depressive disorder, single episode, unspecified (principal); R45.851 Suicidal ideations
CPT/HCPCS: 93005; 99285; 36415; 80307 ×4; 85025; 80053; 81001; 93010; J3490 ×3